=== PATIENT | male | born 2000 | race Caucasian/White ===

== ENCOUNTER → 2021-08-07 13:19 | Outpatient (CLI) | payer OTHER, SELFPAY ==
--- NOTE | ~2021-08-07 | MR_ITS ---
EXAMINATION: MR brain/brain stem wo/w con EXAM DATE: 08/07/2021 14:05 INDICATION: H53.8 - Other visual disturbances visual disturbances. TECHNIQUE: Magnetic resonance imaging (MRI) of the brain/brain stem obtained without contrast. Sagit reynaldo T1, axial diffusion, gradient echo (T2*), T1, T2, FLAIR sequences obtained. Patient was then inj ected with 13 cc intravenous Multihance contrast. Axial and coronal postcontrast T1 weighted sequence s obtained. There is no prior study for comparison. FINDINGS: There are no areas of restricted diffusion to suggest acute infarction. There is no acute hemorrhage seen on the T2*, a hemosiderin sensitive sequence. No intraparenchymal brain mass. The v entricles are normal in size. There are no extra-axial collections. Flow voids are seen in the cere bral arteries on the T2-weighted sequences consistent with their expected patency. The orbits are un remarkable. Soft tissue is unremarkable. IMPRESSION: Normal brain MRI examination. Reviewed, dictated and finalized at location B. HANDLER
[2021-08-07 13:47] LABS: Estimated Glomerular Filt Rate > 60
== END ==
PROVIDERS: PCP Internal Medicine; Visit Provider Nurse Practitioner
DX: H53.8 Other visual disturbances (principal)
CPT/HCPCS: 70553; A9577

== ENCOUNTER 2022-03-02 03:07 | Emergency (ER) | payer OTHER, SELFPAY ==
[2022-03-02] VITALS (27 sets, daily range): BP systolic 92–125; BP diastolic 48–91; PULSE 73–95; RESP 16–24; TEMP 36.6; O2SAT 91–98
[2022-03-02 03:35] LABS: Basophils Absolute Auto 0.1 K/mm3 (0.0-0.1); Basophils Percent Auto 0.7 % (0.2-1.2); Eosinophils Absolute Auto 0.2 K/mm3 (0-0.3); Eosinophils Percent Auto 3.1 % (0-4.4); Hematocrit 46.7 % (42.0-52.0); Hemoglobin 16.3 g/dL (14.0-18.0); Immature Granulocyte Absolute 0.03 K/mm3 (0.00-0.031); Immature Granulocyte Percent A 0.4 % (0-0.5); Lymphocytes Absolute Auto 2.25 K/mm3 (0.9-3.2); Lymphocytes Percent Auto 30.8 % (18.3-44.2); Mean Corpuscular HGB Conc 34.9 g/dl (32-36); Mean Corpuscular Hemoglobin 29.7 pg (26-34); Mean Corpuscular Volume 85.2 fl (80-100); Mean Platelet Volume 9.2 fl (7.4-10.4); Monocytes Absolute Auto 0.5 K/mm3 (0.1-0.6); Neutrophils Absolute Auto 4.2 K/mm3 (1.3-6.7); Platelet Count Result 210 k/mm3 (150-375); Red Blood Count 5.48 M/mm3 (4.6-6.20); Red Cell Distribution Width 12.7 % (11.5-14.5); White Blood Count 7.3 K/mm3 (4.5-10.0)
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
[2022-03-02 03:51] LABS: Alanine Aminotransferase 166 U/L (6-50); Albumin Level 4.8 g/dL (3.5-5.1); Alkaline Phosphatase 55 U/L (38-126); Anion Gap 12 mmol/L (8-16); Aspartate Amino Transferase 253 U/L (17-59); Bilirubin,Total 0.2 mg/dL (0.2-1.3); Blood Urea Nitrogen 11 mg/dL (9-20); Carbon Dioxide 19 mmol/L (22-30); Chloride 111 mmol/L (98-107); Estimated Glomerular Filt Rate > 60; Glucose 110 mg/dL (65-110); Potassium 3.8 mmol/L (3.4-5.0); Sodium 142 mmol/L (137-145)
[2022-03-02 04:11] LABS: Ethanol 261 mg/dL (<10)
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
--- NOTE | 2022-03-02 06:05 | PC.NURSE ---
chief operations officer change of shift
--- NOTE | 2022-03-02 07:00 | PC.NURSE ---
pt ambulated from bed to this RN and back with steady gait.
--- NOTE | 2022-03-02 07:08 | PC.NURSE ---
Electrical Designer Drafter went to patient's bedside with [facility] to receive bedside report. [facility] asked, Price, what month is it? Patient responded, November. Electrical Designer Drafter then asked, What holiday was just celebrated? Patient responded, February Electrical Designer Drafter informed Dr. Ramires that patient was now aware of the month and is ready for discharge per Dr. Ramires's parameters for discharge.
--- NOTE | 2022-03-02 07:21 | PC.NURSE ---
Discharge papers reviewed with patient and police reserves commander at bedside. Patient and officer deny any questions at this time. Discharge papers given to police reserves commander and patient taken in handcuffs in police custody.
== END 2022-03-02 07:24 ==
PROVIDERS: Emergency Provider Emergency Medicine; PCP Internal Medicine
DX: F10.129 Alcohol abuse with intoxication, unspecified (principal); Y90.8 Blood alcohol level of 240 mg/100 ml or more; R74.01 Elevation of levels of liver transaminase levels; F90.9 Attention-deficit hyperactivity disorder, unspecified type; F41.9 Anxiety disorder, unspecified; F32.A Depression, unspecified; K58.9 Irritable bowel syndrome, unspecified; I10 Essential (primary) hypertension; F17.290 Nicotine dependence, other tobacco product, uncomplicated
CPT/HCPCS: 36415; 80053; 80307; 85025; 99283

== ENCOUNTER 2022-06-11 08:19 | Emergency (ER) | payer OTHER, SELFPAY ==
[2022-06-11 08:30] VITALS: BP 148/80; PULSE 80; RESP 12; TEMP 36.8; O2SAT 100
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
== END 2022-06-11 08:46 | disposition short-term general hospital (02) ==
PROVIDERS: Emergency Provider Nurse Practitioner; PCP Internal Medicine
DX: H11.32 Conjunctival hemorrhage, left eye (principal); S00.83XA Contusion of other part of head, initial encounter; Y04.0XXA Assault by unarmed brawl or fight, initial encounter; S01.81XA Laceration without foreign body of other part of head, initial encounter; F17.290 Nicotine dependence, other tobacco product, uncomplicated
CPT/HCPCS: 99212; G0463

== ENCOUNTER 2022-08-10 17:26 | Emergency (ER) | payer SELFPAY ==
[2022-08-10 17:32] VITALS: BP 147/81; PULSE 87; RESP 16; TEMP 36.7; O2SAT 97
--- NOTE | 2022-08-10 18:33 | ED.EYEPROB ---
HPI - Eye Problem General Chief complaint: Eye Problems <Margaret Jorgensen PA-C - Last Filed: 08/10/22 19:04> Stated complaint: left eye foreign object, metal <Margaret Jorgensen PA-C - Last Filed: 08/10/22 19:04> Time Seen by Provider: 08/10/22 17:49 <Margaret Jorgensen PA-C - Last Filed: 08/10/22 19:04> Source: patient <Margaret Jorgensen PA-C - Last Filed: 08/10/22 19:04> Mode of arrival: ambulatory <Margaret Jorgensen PA-C - Last Filed: 08/10/22 19:04> Limitations: no limitations <EZE De La Fuente Last Filed: 08/10/22 19:04> History of Present Illness HPI Narrative: This is a 22-year-old male that presents to the emergency department for left eye injury sustained around 12:00 today. 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 He felt like he got something in the eye. He has had discomfort and irritation in the eye since. Denies visual changes or vomiting. <Margaret Jorgensen PA-C - Last Filed: 08/10/22 19:04> Related Data Allergies/adverse reactions: Allergies Allergy/AdvReac Type Severity Reaction Status Date / Time amoxicillin Allergy Unknown Rash Verified 08/10/22 17:27 clavulanic acid Allergy Rash Verified 08/10/22 17:27 [From Augmentin] <Margaret Jorgensen PA-C - Last Filed: 08/10/22 19:04> Review of Systems Review of Systems: CONSTITUTIONAL: Denies fever EYES: Denies visual changes, redness, or discharge. <EZE De La Fuente Last Filed: 08/10/22 19:04> All systems reviewed & are unremarkable except as noted in HPI and below <Margaret Jorgensen PA-C - Last Filed: 08/10/22 19:04> PMFSH Past Medical History Medical History: Medical History ADHD Anxiety Broken toe Chronic diarrhea Depression Hypertension IBS (irritable bowel syndrome) <Margaret Jorgensen PA-C - Last Filed: 08/10/22 19:04> Surgical History Surgical History: Surgical History H/O thumb surgery [place] teeth removed <Margaret Jorgensen PA-C - Last Filed: 08/10/22 19:04> Family History Family History: Family History Father Diabetes mellitus Patient's father is in good health Mother Hypertension Patient's mother is in good health Sibling Patient's sister is in good health Grandparent Cerebrovascular accident Acute myocardial infarction Lung cancer Hypertension <Margaret Jorgensen PA-C - Last Filed: 08/10/22 19:04> Social History Social History: Social History Social History: Caffeine-tea daily Smoking packs per day: 1 Smoking cigarettes per day: 20.0 Smoking status: Current every day smoker Tobacco type: e-cigarettes/vaping Alcohol intake: never Alcohol use details: None- Sober for 5 months Substance use: current Substance use type: marijuana Gender identity (if verbalized by the patient): Male <Margaret Jorgensen PA-C - Last Filed: 08/10/22 19:04> Exam Narrative: GENERAL: Well-appearing, well-nourished, and in no acute distress. HEAD: Normocephalic, atraumatic. EYES: PERRLA and EOMI. Small metallic foreign body noted in the left eye just lateral to the iris. No erythema or abnormal drainage. Eye pressure 11 on the left, 10 on the right. Visual acuity 20/50 left, 20/50 right EXTREMITIES: Normal range of motion. No edema. SKIN: Warm, dry, no rash. NEURO: No focal deficits. Alert and oriented x3. PSYCH: Normal mood and affect <Margaret Jorgensen PA-C - Last Filed: 08/10/22 19:04> Course FAITH HEALER/PA Physician Supervision For this patient encounter, I reviewed the FAITH HEALER or PA documentation, treatment plan, and medical decision making and I had [id number] time with this patient. 22-year-old male presenting with ocular foreign body after working with rebar without eye protection.
[2022-08-10] MEDS: FLUORESCEIN SOD 1 MG/STRIP (19:14)
[2022-08-10] MEDS: DACRIOSE EYE IRRIGATION 118 ML BOTTLE (19:14)
[2022-08-10] MEDS: TETRACAINE HCL 0.5% OPHTH SOLN 4 ML BTL 1 DROP (19:15)
== END 2022-08-10 19:18 | disposition home or self-care (01) ==
PROVIDERS: Emergency Provider Emergency Medicine; PCP Internal Medicine
DX: T15.02XA Foreign body in cornea, left eye, initial encounter (principal); I10 Essential (primary) hypertension; K58.9 Irritable bowel syndrome, unspecified; F17.290 Nicotine dependence, other tobacco product, uncomplicated; W20.8XXA Other cause of strike by thrown, projected or falling object, initial encounter
CPT/HCPCS: 65220; 99283; A9270

== ENCOUNTER 2022-09-27 12:22 | Outpatient (CLI) | payer OTHER, SELFPAY ==
--- NOTE | ~2022-09-27 | CT_ITS ---
EXAMINATION: CT abdomen pelvis w con INDICATION: Right lower quadrant pain TECHNIQUE: Computed tomographic images of the abdomen and pelvis were obtained after the administrati on of 100 cc of Omnipaque 350 intravenous contrast. The dose-length product (DLP) was 276.07 mGy-cm. Automated exposure control and iterative reconstruction technique were employed. COMPARISON: None available FINDINGS: The lung bases are clear. The heart size is normal. The liver, spleen, pancreas, gallbladde r, and adrenal glands are normal. The kidneys are unremarkable. The appendix is normal. No pathologic ally enlarged abdominal or pelvic lymph nodes are identified. No free intraperitoneal gas or evidence of bowel obstruction. IMPRESSION: 1. No CT correlate for the patient's symptoms. Reviewed, dictated and finalized at location L. OLEUM REFINERY WORKER
== END 2022-09-27 12:23 | disposition home or self-care (01) ==
PROVIDERS: PCP Internal Medicine; Visit Provider Clinical Nurse Specialist
DX: R10.31 Right lower quadrant pain (principal)
CPT/HCPCS: 74177; Q9967

== ENCOUNTER 2022-09-28 02:25 | Emergency (ER) | payer OTHER, SELFPAY ==
[2022-09-28 02:29] VITALS: BP 146/81; PULSE 57; RESP 20; TEMP 36.8; O2SAT 100
[2022-09-28] MEDS: MAG HYDROX/AL HYDROX/SIMETH 30 ML UDC PO (03:46)
[2022-09-28] MEDS: HALOPERIDOL LACTATE 5 MG/ML VIAL 2.5 MG IM (03:46)
[2022-09-28] MEDS: DICYCLOMINE HCL INJ 20 MG/2 ML VIAL IM (03:47)
[2022-09-28] MEDS: FAMOTIDINE 20 MG TABLET PO (03:47)
[2022-09-28 04:13] LABS: Basophils Percent Auto 0.3 % (0.2-1.2); Eosinophils Absolute Auto 0.1 K/mm3 (0-0.3); Eosinophils Percent Auto 1.2 % (0-4.4); Hematocrit 47.1 % (42.0-52.0); Hemoglobin 16.2 g/dL (14.0-18.0); Immature Granulocyte Absolute 0.04 K/mm3 (0.00-0.031); Immature Granulocyte Percent A 0.3 % (0-0.5); Lymphocytes Absolute Auto 1.55 K/mm3 (0.9-3.2); Lymphocytes Percent Auto 13.5 % (18.3-44.2); Mean Corpuscular HGB Conc 34.4 g/dl (32-36); Mean Corpuscular Hemoglobin 30.1 pg (26-34); Mean Corpuscular Volume 87.5 fl (80-100); Mean Platelet Volume 9.8 fl (7.4-10.4); Monocytes Absolute Auto 0.7 K/mm3 (0.1-0.6); Monocytes Percent Auto 6.4 % (2.6-8.5); Neutrophils Percent Auto 78.3 % (45.5-73.1); Platelet Count Result 189 k/mm3 (150-375); Red Blood Count 5.38 M/mm3 (4.6-6.20); Red Cell Distribution Width 12.4 % (11.5-14.5); White Blood Count 11.5 K/mm3 (4.5-10.0)
[2022-09-28 04:23] LABS: Alanine Aminotransferase 23 U/L (6-50); Albumin Level 4.2 g/dL (3.5-5.1); Alkaline Phosphatase 57 U/L (38-126); Anion Gap 5 mmol/L (8-16); Aspartate Amino Transferase 24 U/L (17-59); Bilirubin,Total 0.6 mg/dL (0.2-1.3); Blood Urea Nitrogen 13 mg/dL (9-20); Calcium 9.3 mg/dL (8.4-10.2); Carbon Dioxide 30 mmol/L (22-30); Chloride 104 mmol/L (98-107); Estimated CRCL calculation 100 ml/min; Estimated Glomerular Filt Rate > 60; Glucose 111 mg/dL (65-110); Lipase 50 U/L (23-300); Potassium 3.8 mmol/L (3.4-5.0); Sodium 139 mmol/L (137-145)
[2022-09-28] MEDS: diphenhydrAMINE HCl CAP 25 MG CAPSULE 50 MG PO (04:55)
--- NOTE | 2022-09-28 04:57 | PC.NURSE ---
Addendum entered by Lisa Khoury RN 09/28/22 05:02: the episode was over and pt back to baseline in under 5 minutes. Original Note: Pt verbalizes that he is nervous about receiving IM injection. After he accepts the shot... He begins to breathe fast and becomes light headed and diaphoretic. No hives, shortness of breath, nor adventitious lung sounds nor pruritis.
--- NOTE | 2022-09-28 04:59 | ED.ABDPAIN ---
HPI - Abdominal Pain General Chief Complaint: Abdominal Pain Stated Complaint: abd pain Time Seen by Provider: 09/28/22 03:18 History of Present Illness HPI narrative: Patient states that for the past day, he has been having severe pain in his epigastric region, describing it as a burning sensation, he is also feeling nauseous and has been having episodes of vomiting, he had a CT scan obtained yesterday that was negative for any obvious abnormality. Been started on any medications at this time. He does use marijuana every other day. He did only have a beer and something for dinner yesterday before this all started. States he has never had symptoms like this before. Related Data Allergies Allergy/AdvReac Type Severity Reaction Status Date / Time amoxicillin Allergy Unknown Rash Verified 09/27/22 10:54 clavulanic acid Allergy Rash Verified 09/27/22 10:54 [From Augmentin] Review of Systems Review of Systems: CONST: No fever. HEENT: No sore throat C/V: No chest pain RESP: No cough GI: Reports abdominal pain, nausea, vomiting : No dysuria. M/S: No joint pain. SKIN: No rash. NEURO: [No headache or focal numbness or weakness] PSYCH: [No depression] PMFSH Past Medical History Medical History ADHD Anxiety Broken toe Chronic diarrhea Depression Genital herpes Hypertension IBS (irritable bowel syndrome) Surgical History Surgical History H/O thumb surgery [place] teeth removed Family History Family History Father Diabetes mellitus Patient's father is in good health Mother Hypertension Patient's mother is in good health Sibling Patient's sister is in good health Grandparent Cerebrovascular accident Acute myocardial infarction Lung cancer Hypertension Social History Social History Social History: Caffeine-tea daily Smoking packs per day: 1 Smoking cigarettes per day: 20.0 Smoking status: Current every day smoker Tobacco type: e-cigarettes/vaping Alcohol intake: never Alcohol use details: None- Sober for 5 months Substance use: current Substance use type: marijuana Living arrangements: with family Gender identity (if verbalized by the patient): Male Exam Narrative: EXAMINATION OF ORGAN SYSTEMS/BODY AREAS: Constitutional: Vital signs per nursing GENERAL: Appears uncomfortable in bed speaking full sentences, moving around HEAD: Normal with no signs of head trauma. EYES: EOMI, conjunctiva normal ENT: Hearing grossly intact LUNGS: Nonlabored breathing. HEART: [Regular rate and rhythm] ABD: [Soft], [mildly tender to palpation epigastric abdomen], no right upper quadrant or right lower quadrant tenderness EXT: Normal range of motion SKIN: [No rashes or lesions.] NEURO: [Alert and oriented x 3. No gross focal sensory or strength deficits.] PSYCH: Normal affect Course Vital Signs Vital signs: Vital Signs Temperature 98.2 F 09/28/22 02:29 Pulse Rate 57 L 09/28/22 02:29 Respiratory Rate 20 09/28/22 02:29 Blood Pressure 146/81 H 09/28/22 02:29 Pulse Oximetry 100 09/28/22 02:29 Oxygen Delivery Room Air 09/28/22 02:29 Temperature 98.2 F 09/28/22 02:29 Pulse Rate 57 L 09/28/22 02:29 Respiratory Rate 20 09/28/22 02:29 Blood Pressure 146/81 H 09/28/22 02:29 Pulse Oximetry 100 09/28/22 02:29 Oxygen Delivery Room Air 09/28/22 02:29 MDM - Abdominal Pain MDM Narrative Medical decision making narrative: Electronic medical record was reviewed. Patient presented to the ED with complaint of [abdominal pain and vomiting], he does have a history of IBS. Vitals [were within acceptable limits]. Physical exam revealed [tenderness to palpation in epigastric abdomen]. Based on the patient's history and physical exam, my differential includes bu
[2022-09-28 05:29] VITALS: BP 118/77; PULSE 80; RESP 16; TEMP 36.7; O2SAT 97
== END 2022-09-28 05:32 | disposition home or self-care (01) ==
PROVIDERS: Emergency Provider Emergency Medicine; PCP Internal Medicine
DX: R10.13 Epigastric pain (principal); R11.10 Vomiting, unspecified; I10 Essential (primary) hypertension; K58.0 Irritable bowel syndrome with diarrhea; F17.290 Nicotine dependence, other tobacco product, uncomplicated
CPT/HCPCS: 36415; 80053; 83690; 85025; 96372; 99284; A9270; J0500; J1630

== ENCOUNTER 2022-12-28 12:45 | Outpatient (CLI) | payer OTHER, SELFPAY ==
[2022-12-29 09:12] LABS: HIV 1/2 Ab P24 Ag Result Negative (Negative)
[2022-12-29 09:16] LABS: Hepatitis C Virus Antibody Negative (Negative)
[2022-12-31 10:06] LABS: Rapid Plasma Reagin Non-Reactive (NonReactive)
[2023-01-02 18:33] LABS: Herpes Simplex Type 1 DNA PCR NOT DETECTED; Herpes Simplex Type 2 DNA PCR NOT DETECTED
== END 2022-12-28 12:46 | disposition home or self-care (01) ==
LOC: ANHGOSHLAB 12:48
PROVIDERS: PCP Internal Medicine; Visit Provider Nurse Practitioner
DX: Z20.2 Contact with and (suspected) exposure to infections with a predominantly sexual mode of transmission (principal)
CPT/HCPCS: 36415; 86592; 86703; 86803; 87491; 87529; 87591; G0432

== ENCOUNTER 2024-11-02 11:59 | Outpatient (CLI) | payer OTHER, SELFPAY ==
--- NOTE | ~2024-11-02 | XR_ITS ---
Right ankle Technique: AP, oblique, and lateral views were obtained. Clinical History: Injury Findings: No acute fracture or dislocation is seen. Osseous alignment is anatomic. Ankle mortise and other visualized joint spaces are preserved. Soft tissues are otherwise unremarkable. Impression: Unremarkable right ankle. Reviewed, dictated and finalized at location . Impression: Unremarkable right ankle.
== END 2024-11-02 12:00 | disposition home or self-care (01) ==
LOC: GOSHIMG 12:01
PROVIDERS: PCP Internal Medicine; Visit Provider Student in an Organized Health Care Education/Training Program
DX: S99.911A Unspecified injury of right ankle, initial encounter (principal); X58.XXXA Exposure to other specified factors, initial encounter
CPT/HCPCS: 73610